=== PATIENT | male | born 1995 | race Caucasian/White ===

== ENCOUNTER 2025-01-06 07:18 | Emergency (ER) | payer BC, SELFPAY ==
--- OUTSIDE RECORDS SUMMARY | 2025-01-05 08:20 | XMS_ITS | Continuity of Care Document ---
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 Name Role Phone Yomi Pascual MD Unavailable Unavailable Allergies, Adverse Reactions, Alerts Substance Reaction Status Criticality No Known Allergies Active No Inform ation Medications Medication Instructions Dosage Effective Dates (start - stop) Status Comments ENTYVIO Administer Entyvio 3 00 mg every 8 weeks infuse by IV route - Active Entyvio 300 mg intravenous solution infuse (300MG) by intravenous route at 0, 2 and 6 weeks, and every 8 weeks thereafter - Active budesonide DR - ER 3 mg capsule,delayed,exten ded release take 3 capsule by oral route every day in the morning - Active Procedures Procedure Date Iv Infus Therap/dx-by Phys; To Routine Serum Collection Iv Infus Therap/dx-by Phys; To Iv Infus Therap/dx-by Phys; To Iv Infus Therap/dx-by Phys; To Iv Infus Therap/dx-by Phys; To 24 Offic/outpt E&m Estab Low-mod Immuniz Admin; 1/combo Vacc/to 24 Flucelvax Trivalent 0.5 mL IV Infusion Up To 1 Hour Offic/outpt E&m Estab Low-mod 4 Avsola IV Infusion Up To 1 Hour Avsola IV Infusion Up To 1 Hour Routine Serum Collection Colonoscopy Flex; Dx (sep Pro) 24 Ugi Endo; W/bx 1/mx Level Iv-surg Path Gross/micro 24 Routine Serum Collection Offic/outpt E&m Estab Mod-hi 2 24 IV Infusion Up To 1 Hour Avsola Avsola IV Infusion Up To 1 Hour Routine Serum Collection Avsola IV Infusion Up To 1 Hour Routine Serum Collection Established Level 4 Remicade Per 10 Mg IV Infusion Up To 1 Hour Each Additional Hour Remicade Per 10 Mg Remicade Per 10 Mg IV Infusion Up To 1 Hour Each Additional Hour Remicade Per 10 Mg IV Infusion Up To 1 Hour Each Additional Hour Offic/outpt E&m Estab Mod-hi 2 Routine Serum Collection Subsqt Hosp-da E&m Minr Compl 3 Init Inpt Cons New/est Mod-hi 3 Offic/outpt E&m New Mod-hi Routine Serum Collection Advance Directives Directive Yes / No Effective Date File Name No Information Encounters Encounter Description Practice Location Reason(s) For Visit Diagnoses Date Provider Providers Copied on Encounter [facility] NATALIA COCHRAN [address] [address], [place], [id number], [place] tel:[phone] [facility] No Information Ankur Celaya. [address] [facility], [facility] [address], [place], [address], [place]. tel:[phone] [facility], [address] [address], [place], [address], [place] tel:[phone] [facility] Crohn's disease, unspecified, without complications Ankur Celaya. [address] [facility], [facility] [address], [place], [id number], [place]. [phone] Jailyn Reese PAC. tel:[phone] [facility], [address] [address], [place], [address], [place] tel:[phone] [facility] Crohn's disease, unspecified, without complications Wes Hahn. [facility] [address], [id number], [place]. [phone] Jailyn Reese PAC. tel:[phone] erring Provider: Referral Self, USE FOR SELF REFERRALS. [facility], [address] [address], [place], [address], [place] tel:[phone] [facility] Crohn's disease of both small and large intestine with intestinal obstruction [facility] Mosley. [address] [facility] [address], [place], [address], [place]. tel:[phone] Referring Provider: Referral Self, USE FOR SELF REFERRALS. [facility], [address] [address], [place], [address], [place] tel:[phone] [facility] Crohn's disease of both small and lg int w intestinal obst 5 Edstrom [facility] Mosley. [address] [facility], [facility] [address], [place], [address], [place]. tel:[phone] [facility], [address] [address], [place], [address], [place] tel:[phone] [facility] [facility] Crohn's disease, unspecified, without complications 5 Ankur Celaya. [address] [place] [address], [id number], [place]. tel:[phone] Jailyn Reese PAC. tel:[phone] [facility], [address] [address], [place], [address], [place] tel:[phone] [facility] [place] Crohn's disease, unspecified, without complications 5 Td Herring. [address] [place] [address], [id number], [place]. tel:[phone] Jailyn Reese PAC. tel:[phone] erring Provider: Referral Self, USE FOR SELF REFERRALS. [facility], [address] [address], [place], [address], [place] tel:[phone] [facility] Crohn's disease, unspecified, without complications 5 Ankur Celaya. [address] [place] [address], [id number], [place]. [phone] [facility], [address] [address], [place], [address], [place] tel:[phone] [facility] Crohn's disease, unspecified, without complications 5 Raymon Casas. [address] [place] [address], [id number], [place]. [phone] Jailyn Reese PAC. tel:[phone] erring Provider: Referral Self, USE FOR SELF REFERRALS. [facility], [address] [address], [place], [address], [place] tel:[phone] [facility] Crohn's disease, unspecified, without complications 5 Ankur Celaya. [address] [place] [address], [id number], [place]. tel:[phone] Jailyn Reese PAC. tel:[phone] [facility], [address] [address], [place], [address], [place] tel:[phone] [facility] [place] Crohn's disease, unspecified, without complications 4 Raymon Casas. [address] [place] [address], [id number], [place]. [phone] Jailyn Reese PAC. tel:[phone] erring Provider: Referral Self, USE FOR SELF REFERRALS. [facility], [address] [address], [place], [address], [place] tel:[phone] [facility] [place] Crohn's disease, unspecified, without complications 4 Ankur Celaya. [address] [place] [address], [id number], [place]. tel:[phone] [facility], [address] [address], [place], [address], [place] tel:[phone] [facility] Crohn's disease, unspecified, without complications 4 Raymon Casas. [address] [place] [address], [id number], [place]. tel:[phone] Jailyn Reese PAC. tel:[phone] erring Provider: Referral Self, USE FOR SELF REFERRALS. [facility], [address] [address], [place], [address], [place] tel:[phone] [facility] Crohn's disease, unspecified, without complications 4 Ankur Celaya. [address] [place] [address], [id number], [place]. tel:[phone] [facility], [address] [address], [place], [address], [place] tel:[phone] [facility] No Information 4 Ankur Celaya. [address] [place] [address], [address], [id number], [place]. tel:[phone] Offic/outpt E&m Estab Low-mod [facility], [address] [address], [place], [id number], [place] tel:[phone] [facility] GI Symptoms or Concerns (chief complaint) Additional Narrative (chief complaint) Crohn's disease, unspecified, without complications 4 Ankur Celaya. [address] [facility], [facility] [address], [place], [address], [place]. tel:[phone] Jailyn Reese PAC. tel:[phone] erring Provider: Referral Self, USE FOR SELF REFERRALS. [facility], [address] [address], [place], [id number], [place] tel:[phone] [facility] Crohn's disease of both small and lg int w intestinal obst 4 Leander Park. [address] [facility], [address], [id number], [place]. tel:[phone] Jailyn Reese PAC. tel:[phone] erring Provider: Referral Self, USE FOR SELF REFERRALS. [facility], [address] [address], [place], [address], [place] tel:[phone] [facility] Crohn's disease of both small and lg int w intestinal obst 4 Ankur Celaya. [address] [facility], [facility] [address], [place], [address], [place]. tel:[phone] Offic/outpt E&m Estab Low-mod [facility], [address] [address], [place], [address], [place] tel:[phone] [facility] GI Symptoms or Concerns (chief complaint) Additional Narrative (chief complaint) Crohn's disease, unspecified, without complications 4 Ankur Celaya. [address] [facility], [facility] [address], [place], [address], [place]. tel:[phone] Jailyn Reese PAC. tel:[phone] erring Provider: Referral Self, USE FOR SELF REFERRALS. [facility], [address] [address], [place], [address], [place] tel:[phone] [facility] Crohn's disease of both small and lg int w intestinal obst 4 Hari Doherty. [address] [place] [address], [id number], [place]. tel:[phone] Jailyn Reese PAC. tel:[phone] erring Provider: Referral Self, USE FOR SELF REFERRALS. [facility], [address] [address], [place], [address], [place] tel:[phone] [facility] Crohn's disease of both small and lg int w intestinal obst 4 Edsshelton Mosley. [address], [id number], [place]. tel:[phone] [facility], [address] [address], [place], [address], [place] tel:[phone] [facility] Crohn's disease of both small and lg int w intestinal obst 4 Ankur Celaya. [address] [facility] [address], [place], [id number], [place]. tel:[phone] Jailyn Reese PAC. tel:[phone] [facility], [address] [address], [place], [address], [place] tel:[phone] [facility] Crohn's disease of both small and lg int w intestinal obst 4 Madhuri Tavarez. [address] [place] [address], [id number], [place]. tel:[phone] Jailyn Reese PAC. tel:[phone] erring Provider: Referral Self, USE FOR SELF REFERRALS. [facility], [address] [address], [place], [address], [place] tel:[phone] [facility] Crohn's disease of both small and lg int w intestinal obst 4 Neyda Mosley. [address] [place] [address], [address], [id number], [place]. tel:[phone] Referring Provider: Referral Self, USE FOR SELF REFERRALS. [facility], [address] [address], [place], [address], [place] tel:[phone] [facility] Crohn's disease of both small and lg int w intestinal obst 4 Ankur Celaya. [address] [place] [address], [id number], [place]. tel:[phone] [facility], [address] [address], [place], [address], [place] tel:[phone] [facility] Crohn's disease, unspecified, without complicationsCro hn's disease, unspecified, without complicationsDuo denitis without bleedingCrohn's disease, unspecified, without complications 4 Ankur Celaya. [address] [place] [address], [id number], [place]. tel:[phone] Jailyn Reese PAC. tel:[phone] erring Provider: Referral Self, USE FOR SELF REFERRALS. [facility], [address] [address], [place], [address], [place] tel:[phone] [facility] Crohn's disease, unspecified, without complications 4 Ankur Celaya. [address] [place] [address], [address], [id number], [place]. tel:[phone] Referring Provider: Referral Self, USE FOR SELF REFERRALS. [facility], [address] [address], [place], [address], [place] tel:[phone] [facility] Crohn's disease without complication, unspecified gastrointestinal tract locationSkin rashPruritic rash 4 Edstrivett Mosley. [address], [id number], [place]. tel:[phone] Offic/outpt E&m Estab Mod-hi 2 [facility], [address] [address], [place], [address], [place] tel:[phone] [facility] GI Symptoms or Concerns (chief complaint) Additional Narrative (chief complaint) Crohn's disease of both small and lg int w intestinal obstCrohn's disease without complication, unspecified gastrointestinal tract location 4 Ankur Celaya. [address], [id number], [place]. tel:[phone] Referring Provider: Referral Self, USE FOR SELF REFERRALS. [facility], [address] [address], [place], [address], [place] tel:[phone] [facility] [place] Crohn's disease of both small and lg int w intestinal obst Sep- 4 Gee Ortiz. [address], [id number], [place]. tel:[phone] Referring Provider: Referral Self, USE FOR SELF REFERRALS. [facility], [address] [address], [place], [address], [place] tel:[phone] [facility] [place] Crohn's disease of both small and lg int w intestinal obst 4 Edstrivett Mosley. [address], [id number], [place]. tel:[phone] [facility], [address] [address], [place], [address], [place] tel:[phone] [facility] [place] Crohn's disease of both small and lg int w intestinal obst 4 Alexia Turner. [address], [id number], [place]. tel:[phone] Referring Provider: Referral Self, USE FOR SELF REFERRALS. [facility], [address] [address], [place], [address], [place] tel:[phone] [facility] Crohn's disease of both small and lg int w intestinal obst 4 Edstrom PA Melany. [address] [place] [address], [id number], [place]. tel:[phone] Referring Provider: Referral Self, USE FOR SELF REFERRALS. [facility], [address] [address], [place], [address], [place] tel:[phone] [facility] [place] Crohn's disease of both small and lg int w intestinal obst 4 Edstrom PA Melany. [address] [place] [address], [id number], [place]. tel:[phone] [facility], [address] [address], [place], [address], [place] tel:[phone] [facility] [place] Crohn's disease of both small and lg int w intestinal obst 3 Nelida Lo. [address], [id number], [place]. tel:[phone] Referring Provider: Referral Self, USE FOR SELF REFERRALS. [facility], [address] [address], [place], [address], [place] tel:[phone] [facility] Crohn's disease of both small and lg int w intestinal obst 3 Edstrom [facility] Mosley. [address] [place] [address], [id number], [place]. tel:[phone] Referring Provider: Referral Self, USE FOR SELF REFERRALS. [facility], [address] [address], [place], [address], [place] tel:[phone] [facility] Crohn's disease of both small and lg int w intestinal obst Dec-0 8- 3 Edstrom [facility] Mosley. [address] [facility], [facility] [address], [place], [address], [place]. tel:[phone] [facility], [address] [address], [place], [address], [place] tel:[phone] [facility] Crohn's disease of both small and lg int w intestinal obst Apr-06 28- 3 Edstrom [facility] Mosley. [address], [id number], [place]. tel:[phone] Established Level 4 [facility], [address] [address], [place], [address], [place] tel:[phone] [facility] GI Symptoms or Concerns (chief complaint) Additional Narrative (chief complaint) Crohn's disease of both small and lg int w intestinal obst Apr-06 26- 3 Edstrom [facility] Mosley. [address], [id number], [place]. tel:[phone] Referring Provider: Referral Self, USE FOR SELF REFERRALS. [facility], [address] [address], [place], [address], [place] tel:[phone] [facility] [place] Crohn's disease of both small and lg int w intestinal obst Mar-2 0- 3 [place]ander [place]. [address], [id number], [place]. tel:[phone] Referring Provider: Referral Self, USE FOR SELF REFERRALS. [facility], [address] [address], [place], [address], [place] tel:[phone] [facility] Crohn's disease of both small and lg int w intestinal obst Mar- 2-202 3 Edstrom [facility] Mosley. [address] [facility], [address], [id number], [place]. tel:[phone] [facility], [address] [address], [place], [address], [place] tel:[phone] [facility] [place] Crohn's disease of both small and lg int w intestinal obst Sep-2 3 Andi Green. [address], [id number], [place]. tel:[phone] Referring Provider: Referral Self, USE FOR SELF REFERRALS. [facility], [address] [address], [place], [id number], [place] tel:[phone] [facility] [place] Crohn's disease of both small and lg int w intestinal obst Sep-1 3 Edstrom [facility] Mosley. [address], [id number], [place]. tel:[phone] [facility], [address] [address], [place], [address], [place] tel:[phone] [facility] Crohn's disease of both small and lg int w intestinal obst Sep-0 3 Gee Ortiz. [address], [id number], [place]. tel:[phone] Referring Provider: Referral Self, USE FOR SELF REFERRALS. [facility], [address] [address], [place], [id number], [place] tel:[phone] [facility] [place] Crohn's disease of both small and large intestine with intestinal obstruction 3 Edstrom DIM[facility] Mosley. [address], [id number], [place]. tel:[phone] [facility], [address] [address], [place], [address], [place] tel:[phone] [facility] Crohn's disease of both small and large intestine with intestinal obstruction 3 Edstrom [facility]IM[facility] Mosley. [address], [id number], [place]. tel:[phone] Offic/outpt E&m Estab Mod-hi 2 [facility], [address] [address], [facility] [place] [place], [address], [place] tel:[phone] [facility] GI Symptoms or Concerns (chief complaint) Crohn's disease of both small and large intestine with intestinal obstruction 3 Neyda Mosley. [address] [facility], [place] [address], [place], [place], [address], [place]. tel:[phone] Referring Provider: Referral Self, USE FOR SELF REFERRALS. Subsqt Hosp-da E&m Minr Compl [facility], [address] [address], [facility] [place], [address], [place] tel:[phone] [facility] No Information 3 Nelida Lo. [address], [id number], [place]. tel:[phone] Referring Provider: Teresita Hull, [address] [address], [place], [address] . tel:[phone] Init Inpt Cons New/est Mod-hi [facility], [address] [address], [facility] [place], [address], [place] tel:[phone] [facility] No Information 3 Hal Feliz. [address] [facility], [place] [address], [place], [place], [address], [place]. tel:[phone] Referring Provider: Kirby Lake MD, [address] [facility] [address], [place], [address]. tel:[phone] [facility], [address] [address], [place], [address], [place] tel:[phone] [facility] Crohn's disease of both small and large intestine with intestinal obstruction 3 Hal Feliz. [address] [facility], [address], [id number], [place]. tel:[phone] Offic/outpt E&m New Mod-hi [facility], [address] [address], [place], [place], [address], tel:[phone] [facility] GI Symptoms or Concerns (chief complaint) Crohn's disease without complication, unspecified gastrointestinal tract location 3 Sarahi Cabezas. [address] [address], [place], [place], [address], [place]. tel:[phone] Referring Provider: Referral Self, USE FOR SELF REFERRALS. [facility], [address] [address], [place], [place], [address], tel:[phone] [facility] No Information 3 Kahlil Self. [address] [address], [place], [place], [address], [place]. tel:[phone] Family History Family Member Type Diagnosis Age At Onset Father Problem (finding) Alcoholism Mother Problem (finding) Thyroid disorder Immunizations Vaccine Date Status Comments Pneumococcal conjugate PCV20 not administ ered Source: New Immunization Record Influenza administered Source: [facility] Immunization Record tetanus toxoid, reduced diphtheria toxoid, and acellular pertussis vaccine, adsorbed administered Note: [facility] bi-direct ional interface ; Source: Other Registry Payers Payer name Insurance type Covered democrat ID Authoriza tion(s) [employer] [place] [id number] [employer] CI [id number] [employer] [place] [id number] [employer] [place] [id number] Social History Type Description Quantity Date Captured Comments Alcohol Use Details Unknown Caffeine Use Details Unknown Tobacco Use Status No Information Smoking Status No Information Sex Male Chief Complaint And Reason For Visit No Information Reason For Referral Reason For Referral No Information Plan Of Treatment Date Type Action Status Goal Vitamin D, 25-Hydroxy. Due o n due Goal Smoking status. Due on due Goal Dermatology - Skin Screening . Due on due Goal Prevnar 20. Due on due Goal DEXA Bone Density Study. Due on due Goal Influenza. Due on due Goal Tdap. Due on due Goal Colonoscopy. Due on due Goal Prevnar 20. Due on due Goal Tdap. Due on due Goal Colonoscopy. Due on due Goal DEXA Bone Density Study. Due on due Goal Influenza. Due on due Goal Dermatology - Skin Screening . Due on due Goal Smoking status. Due on due Goal Vitamin D, 25-Hydroxy. Due o n due Goal Tdap. Due on due Goal DEXA Bone Density Study. Due on due Goal Colonoscopy. Due on due Goal Smoking status. Due on due Goal Dermatology - Skin Screening . Due on due Goal Influenza. Due on due Goal Prevnar 20. Due on due Goal Vitamin D, 25-Hydroxy. Due o n due Goal Vitamin D, 25-Hydroxy. Due o n due Goal DEXA Bone Density Study. Due on due Goal Smoking status. Due on due Goal Dermatology - Skin Screening . Due on due Goal Colonoscopy. Due on due Goal Prevnar 20. Due on due Goal Tdap. Due on due Goal Influenza. Due on due Goal Influenza. Due on due Goal Prevnar 20. Due on due Goal DEXA Bone Density Study. Due on due Goal Vitamin D, 25-Hydroxy. Due o n due Goal Colonoscopy. Due on due Goal Dermatology - Skin Screening . Due on due Goal Tdap. Due on due Goal Smoking status. Due on due Goal Tdap. Due on due Goal Smoking status. Due on due Goal Influenza. Due on due Goal Prevnar 20. Due on due Goal Vitamin D, 25-Hydroxy. Due o n due Goal DEXA Bone Density Study. Due on due Goal Colonoscopy. Due on due Goal Dermatology - Skin Screening . Due on due Goal Vitamin D, 25-Hydroxy. Due o n due Goal Tdap. Due on due Goal DEXA Bone Density Study. Due on due Goal Smoking status. Due on due Goal Colonoscopy. Due on due Goal Influenza. Due on due Goal Prevnar 20. Due on due Goal Dermatology - Skin Screening . Due on due Goal Influenza. Due on due Goal Prevnar 20. Due on due Goal Colonoscopy. Due on due Goal Smoking status. Due on due Goal DEXA Bone Density Study. Due on due Goal Dermatology - Skin Screening . Due on due Goal Vitamin D, 25-Hydroxy. Due o n due Goal Tdap. Due on due Goal Colonoscopy. Due on due Goal Dermatology - Skin Screening . Due on due Goal Smoking status. Due on due Goal Influenza. Due on due Goal Tdap. Due on due Goal Vitamin D, 25-Hydroxy. Due o n due Goal DEXA Bone Density Study. Due on due Goal Prevnar 20. Due on due Goal Prevnar 20. Due on due Goal Dermatology - Skin Screening . Due on due Goal Influenza. Due on due Goal Smoking status. Due on due Goal Vitamin D, 25-Hydroxy. Due o n due Goal DEXA Bone Density Study. Due on due Goal Colonoscopy. Due on due Goal Tdap. Due on due Goal Vitamin D, 25-Hydroxy. Due o n due Goal Dermatology - Skin Screening . Due on due Goal Smoking status. Due on due Goal Tdap. Due on due Goal Colonoscopy. Due on due Goal Influenza. Due on due Goal DEXA Bone Density Study. Due on due Goal DEXA Bone Density Study. Due on due Goal Colonoscopy. Due on due Goal Smoking status. Due on due Goal Vitamin D, 25-Hydroxy. Due o n due Goal Tdap. Due on due Goal Influenza. Due on due Goal Dermatology - Skin Screening . Due on due Goal DEXA Bone Density Study. Due on due Goal Tdap. Due on due Goal Dermatology - Skin Screening . Due on due Goal Colonoscopy. Due on due Goal Influenza. Due on due Goal Vitamin D, 25-Hydroxy. Due o n due Goal Smoking status. Due on due Goal Dermatology - Skin Screening . Due on due Goal Colonoscopy. Due on due Goal Influenza. Due on due Goal DEXA Bone Density Study. Due on due Goal Tdap. Due on due Goal Vitamin D, 25-Hydroxy. Due o n due Goal Smoking status. Due on due Goal Tdap. Due on due Goal Influenza. Due on due Goal Vitamin D, 25-Hydroxy. Due o n due Goal Smoking status. Due on due Goal DEXA Bone Density Study. Due on due Goal Dermatology - Skin Screening . Due on due Goal Colonoscopy. Due on due Goal Tdap. Due on due Goal Dermatology - Skin Screening . Due on due Goal DEXA Bone Density Study. Due on due Goal Vitamin D, 25-Hydroxy. Due o n due Goal Influenza. Due on due Goal Smoking status. Due on due Goal Colonoscopy. Due on due Goal Tdap. Due on due Goal Dermatology - Skin Screening . Due on due Goal Smoking status. Due on due Goal Vitamin D, 25-Hydroxy. Due o n due Goal DEXA Bone Density Study. Due on due Goal Colonoscopy. Due on due Goal Dermatology - Skin Screening . Due on due Goal Smoking status. Due on due Goal Tdap. Due on due Goal Colonoscopy. Due on due Goal DEXA Bone Density Study. Due on due Goal Vitamin D, 25-Hydroxy. Due o n due Goal Dermatology - Skin Screening . Due on due Goal Tdap. Due on due Goal Vitamin D, 25-Hydroxy. Due o n due Goal DEXA Bone Density Study. Due on due Goal Colonoscopy. Due on due Goal Smoking status. Due on due Goal Tdap. Due on due Goal Colonoscopy. Due on due Goal Smoking status. Due on due Goal Dermatology - Skin Screening . Due on due Goal Vitamin D, 25-Hydroxy. Due o n due Goal DEXA Bone Density Study. Due on due Goal DEXA Bone Density Study. Due on due Goal Dermatology - Skin Screening . Due on due Goal Vitamin D, 25-Hydroxy. Due o n due Goal Colonoscopy. Due on due Goal Tdap. Due on due Goal Smoking status. Due on due Goal Smoking status. Due on due Goal DEXA Bone Density Study. Due on due Goal Vitamin D, 25-Hydroxy. Due o n due Goal Tdap. Due on due Goal Dermatology - Skin Screening . Due on due Goal Colonoscopy. Due on due Referral Ordered: referred to Dermatology skin cancer screening; on infliximab 2 Weeks Appointment date/timeframe: 14 Days ordered Referral Ordered: follow-up visit 1 Year Appointment date/timeframe: 1 Year ordered Referral Ordered: Hepatic Function Panel Appointment date/timeframe: 11/05/2023 ordered Referral Ordered: follow-up visit with IBD MD 4 Months Appointment date/timeframe: 4 Months ordered Referral Ordered: EGD Appointment date/timeframe: 09/04/2023 ordered Referral Ordered: follow-up visit with IBD MD 3 Months Appointment date/timeframe: 3 Months ordered Referral Ordered: Financial Counselor Review Appointment date/timeframe: First Available ordered Referral Ordered: follow-up visit with IBD MD roachnt ok within 6 Weeks or by 02/12/2023 Appointment date/timeframe: 6 Weeks ordered Referral Ordered: MRI Enterography With Contrast Per Radiology Appointment date/timeframe: 12/29/2022 ordered Referral Ordered: Colonoscopy Appointment date/timeframe: 01/12/2023 ordered Appointment Dileep Ospina BOOKED Appointment Dileep Ospina BOOKED History Of Present Illness Encounter Date Complaint History Of Prese nt Illness GI Symptoms or Concerns 29-year- old man with history of Crohn's ileocolitis, with recent flare symptoms and evidence of ongoing ileitis, failure of infliximab due to antibody formation, presents for follow-up to switch to different maintenance medication.MRI in February showed distal ileitis. He has been having mild flare symptoms, including abdominal cramping, particularly at work when bending over and doing physical activity (which is common for him), and to a lesser degree with eating. His bowel movements are still regular. He denies constipation or diarrhea. He denies blood in his stool or black stool. No nausea or vomiting.Recent infliximab trough level showed undetectable drug and high antibodies.He started on budesonide 9 Mg daily about 5 days ago. He does feel some improvement in the abdominal pain since starting budesonide. Additional Narrative IBD:Crohn's ileocolitis (with possible upper GI tract Crohn's), diagnosed through Dr. Gurrola in [place], [place] in November of 2021. Complicated by small bowel obstructions (three times in 2022).CURRENT TREATMENT:-Infliximab/Avsola 5 mg/kg every 8 weeks (02/27/2023 - present). Infliximab trough level found to be undetectable with high antibodies (>1000) on 03/11/24. PRIOR TREATMENTS:-azathioprine 175 milligrams daily ([id number]; overlapped with infliximab for a few months)-Prednisone taper 11/2023-12/2023IMAGING:-CT 11/2023 with partial SBO; seen at ED with acute symptoms. Treated with prednisone taper. -CT (03/2023) - irregular thickening and narrowing of the TI similar to previous exam in December 2022, with proximal small bowel dilation consistent with small bowel obstruction. -CT 12/30/2022 moderately dilated loops of central small bowel with marked thickening of the distal small bowel at the terminal ileum and moderate perienteric inflammatory change similar to previous exam likely related to active Crohn's disease likely contributing to partial small bowel obstruction. -CT 10/21/2022 marked wall thickening, mucosal hyperenhancement, luminal narrowing involving approximately 15 centimeter segment of distal ileum leading to the ileocecal valve with associated perienteric fat stranding and vascular engorgement consistent with Crohn's disease with proximal multiple dilated fluid-filled loops of small bowel suggestive of partial small bowel obstruction, multiple prominent mesenteric lymph node likely reactive. -MRE 03/04/24: 10 cm distal ileum inflammation (despite infliximab/avsola treatment).ENDOSCOPIES:-Upper endoscopy and colonoscopy ([facility]) 12/17/2021. Colonoscopy showed mild inflammation in the rectum and throughout the colon, terminal ileum inflammation. Colon biopsies showed focal active colitis with aphthous erosions and non-necrotizing granulomas. Rectal biopsy showed inactive, chronic colitis with scattered non-necrotizing granulomas. Upper endoscopy showed evidence of mild gastritis. Gastric biopsy showed patchy mild, chronic inflammation with non-necrotizing granulomas, negative H pylori stains, duodenal biopsy was normal. Gastroesophageal junction biopsy showed non-necrotizing granulomas in the gastric cardia, terminal ileum biopsy showed active, chronic ileitis. LABS:-Negative QuantiFERON 11/2022. -Hepatitis B surface antigen, surface antibody, and core antibody all negative. HAV negative. 11/2022.HEALTH MAINTENANCE:NSAID use: none. Tobacco: none. Influenza vaccine: given 04/29/24. Pneumococcal vaccine: undocumented. Prevnar 20 ordered, but not yet given. COVID-19 vaccine: No prior vaccine per patient. Declines. Hepatitis A and B vaccine: noted to be nonimmune in November 2022. Declined vaccinations today. Varicella vaccine: undocumented. (Patient reports that he lived in [place] until he was a teenager therefore vaccination records may be difficult to retrieve.)Vitamin-D: patient reports taking a multivitamin with vitamin D. Normal vitamin D level January 2023.Vitamin B12: normal January 2023. Reports being on oral iron supplements in the past but not presently.Derm eval: evaluated in 02/2024; no concernsSurveillance colonoscopy will be due in 2030. GI Symptoms or Concerns 29-year- old man with history of Crohn's ileocolitis, complicated by prior bowel obstructions, presents for follow-up. He has been maintained on infliximab 5 mg/ kg every 8 weeks since 02/2023. He had recent bowel obstruction, treated conservatively and with prednisone taper in 11/2023. He has now completed prednisone for about 2 weeks. He reports pain started abruptly, and seem to be brought on by heavy lifting and other physical labor at his job. Prior obstructions have also seemed to be triggered by this. 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 He denies any GI symptoms prior to the acute onset. He did seem to feel better with prednisone. He denies blood in his stool, black stool, diarrhea, early satiety, nausea or vomiting, unexplained weight loss. He denies extraintestinal symptoms. He also states that he had a pruritic rash on his extensor several months ago. Not related to infusions. He went online and got a suggestion that it might be a nutritional d Additional Narrative IBD:Crohn's ileocolitis (with possible upper GI tract Crohn's), diagnosed through Dr. Gurrola in [place], [place] in November of 2021. Complicated by small bowel obstructions (three times in 2022).CURRENT TREATMENT:-Infliximab/Avsola 5 mg/kg every 8 weeks (02/27/2023 - present)PRIOR TREATMENTS:-azathioprine 175 milligrams daily ([id number]; overlapped with infliximab for a few months)-Prednisone taper 11/2023-12/2023IMAGING:-CT 11/2023 with partial SBO; seen at ED with acute symptoms. Treated with prednisone taper. -CT (03/2023) - irregular thickening and narrowing of the TI similar to previous exam in December 2022, with proximal small bowel dilation consistent with small bowel obstruction. -CT 12/30/2022 moderately dilated loops of central small bowel with marked thickening of the distal small bowel at the terminal ileum and moderate perienteric inflammatory change similar to previous exam likely related to active Crohn's disease likely contributing to partial small bowel obstruction. -CT 10/21/2022 marked wall thickening, mucosal hyperenhancement, luminal narrowing involving approximately 15 centimeter segment of distal ileum leading to the ileocecal valve with associated perienteric fat stranding and vascular engorgement consistent with Crohn's disease with proximal multiple dilated fluid-filled loops of small bowel suggestive of partial small bowel obstruction, multiple prominent mesenteric lymph node likely reactive. ENDOSCOPIES:-Upper endoscopy and colonoscopy ([facility]) 12/17/2021. Colonoscopy showed mild inflammation in the rectum and throughout the colon, terminal ileum inflammation. Colon biopsies showed focal active colitis with aphthous erosions and non-necrotizing granulomas. Rectal biopsy showed inactive, chronic colitis with scattered non-necrotizing granulomas. Upper endoscopy showed evidence of mild gastritis. Gastric biopsy showed patchy mild, chronic inflammation with non-necrotizing granulomas, negative H pylori stains, duodenal biopsy was normal. Gastroesophageal junction biopsy showed non-necrotizing granulomas in the gastric cardia, terminal ileum biopsy showed active, chronic ileitis. LABS:-Negative QuantiFERON 11/2022. -Hepatitis B surface antigen, surface antibody, and core antibody all negative. HAV negative. 11/2022.HEALTH MAINTENANCE:NSAID use: none. Tobacco: none. Influenza vaccine: declines. Pneumococcal vaccine: undocumented. Prevnar 20 ordered, will get with next infusion.COVID-19 vaccine: No prior vaccine per patient. Declines. Hepatitis A and B vaccine: noted to be nonimmune in November 2022. Declined vaccinations today. Varicella vaccine: undocumented. (Patient reports that he lived in [place] until he was a teenager therefore vaccination records may be difficult to retrieve.)Vitamin-D: patient reports taking a multivitamin with vitamin D. Normal vitamin D level January 2023.Vitamin B12: normal January 2023. Reports being on oral iron supplements in the past but not presently.Derm eval: will address at next visit. Surveillance colonoscopy will be due in 2029. GI Symptoms or Concerns 28-year- old man with history of Crohn's disease of the upper GI tract and lower GI tract, complicated by multiple small bowel obstructions, presents for follow-up after starting infliximab 5 mg/ kg every 8 weeks on 02/27/2023. He was on combination therapy with azathioprine for overlap for a few months, but believes he stopped that a few months ago. He does report that he is doing better since starting the infliximab. He is having daily bowel movements. He is not generally having any abdominal pain. He does note that he occasionally feels a pain in his mid to right abdomen when he bends over at work. 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 The abdominal pain could be related to his physical activity. The pain is mild and occasional. There is no relationship with bowel movements or with eating. He denies blood in his stool or black stools. He denies extraintestinal symptoms. Additional Narrative IBD:Crohn's ileocolitis (with possible upper GI tract Crohn's), diagnosed through Dr. Gurrola in [place], [place] in November of 2021. Complicated by small bowel obstructions (three times in 2022).CURRENT TREATMENT:-Infliximab/Avsola 5 mg/kg every 8 weeks (02/27/2023 - present)PRIOR TREATMENTS:-azathioprine 175 milligrams daily ([id number]; overlapped with infliximab for a few months)IMAGING:-CT (03/2023) - irregular thickening and narrowing of the TI similar to previous exam in December 2022, with proximal small bowel dilation consistent with small bowel obstruction. -CT 12/30/2022 moderately dilated loops of central small bowel with marked thickening of the distal small bowel at the terminal ileum and moderate perienteric inflammatory change similar to previous exam likely related to active Crohn's disease likely contributing to partial small bowel obstruction. -CT 10/21/2022 marked wall thickening, mucosal hyperenhancement, luminal narrowing involving approximately 15 centimeter segment of distal ileum leading to the ileocecal valve with associated perienteric fat stranding and vascular engorgement consistent with Crohn's disease with proximal multiple dilated fluid-filled loops of small bowel suggestive of partial small bowel obstruction, multiple prominent mesenteric lymph node likely reactive. ENDOSCOPIES:-Upper endoscopy and colonoscopy ([facility]) 12/17/2021. Colonoscopy showed mild inflammation in the rectum and throughout the colon, terminal ileum inflammation. Colon biopsies showed focal active colitis with aphthous erosions and non-necrotizing granulomas. Rectal biopsy showed inactive, chronic colitis with scattered non-necrotizing granulomas. Upper endoscopy showed evidence of mild gastritis. Gastric biopsy showed patchy mild, chronic inflammation with non-necrotizing granulomas, negative H pylori stains, duodenal biopsy was normal. Gastroesophageal junction biopsy showed non-necrotizing granulomas in the gastric cardia, terminal ileum biopsy showed active, chronic ileitis. LABS:-Negative QuantiFERON 11/2022. -Hepatitis B surface antigen, surface antibody, and core antibody all negative. HAV negative. 11/2022.HEALTH MAINTENANCE:NSAID use: none. Tobacco: none. Influenza vaccine: declines. Pneumococcal vaccine: undocumented. Prevnar 20 ordered, will get with next infusion.COVID-19 vaccine: No prior vaccine per patient. Declines. Hepatitis A and B vaccine: noted to be nonimmune in November 2022. Declined vaccinations today. Varicella vaccine: undocumented. (Patient reports that he lived in [place] until he was a teenager therefore vaccination records may be difficult to retrieve.)Vitamin-D: patient reports taking a multivitamin with vitamin D. Normal vitamin D level January 2023.Vitamin B12: normal January 2023. Reports being on oral iron supplements in the past but not presently.Derm eval: will address at next visit. Surveillance colonoscopy will be due in 2029. GI Symptoms or Concerns Additional Narrative This is a greg garrett 28-year-old male presenting via virtual visit today for Crohn's ileocolitis follow-up, recent hospitalization for small-bowel obstruction. Dileep was diagnosed with Crohn's ileocolitis, possible upper GI tract Crohn's through Dr. Gurrola in [place], [place] in November of 2021. He has been treated with azathioprine 175 milligrams a day since his diagnosis. He has had trouble more recently with small bowel obstructions and was hospitalized in October, December, and then most recently in late March with CT showing active TI inflammation. He was started on combination therapy with Remicade 5mg/kg on February 27 and completed his final induction dose on April 10. He is due for his first maintenance dose in May but insurance is requiring a switch to Avsola. He was hospitalized at [facility] on April 11 (one day after his 3rd Remicade dose) with nausea, vomiting, abdominal pain. CT scan showed irregular thickening and narrowing of the TI similar to previous exam in December 2022 with proximal small bowel dilation consistent with small bowel obstruction. CBC and CRP were normal. He was treated with an NG tube, IV steroids and quickly improved. He discharged on oral prednisone taper and thinks he is on 10mg right now. He has been doing well since that time with regular stooling. Denies rectal bleeding, abdominal pain, vomiting. Upper endoscopy and colonoscopy records from [facility] dated December 17, 2021. Colonoscopy showed mild inflammation in the rectum and throughout the colon, terminal ileum inflammation. Upper endoscopy showed evidence of mild gastritis. Gastric biopsy showed patchy mild, chronic inflammation with non-necrotizing granulomas, negative H pylori stains, duodenal biopsy was normal. Gastroesophageal junction biopsy showed non-necrotizing granulomas in the gastric cardia, terminal ileum biopsy showed active, chronic ileitis. Random colon biopsies showed focal active colitis with aphthous erosions and non-necrotizing granulomas. Rectal biopsy showed inactive, chronic colitis with scattered non-necrotizing granulomas. CT abdomen and pelvis with IV contrast dated December 30, 2022 showed moderately dilated loops of central small bowel with marked thickening of the distal small bowel at the terminal ileum and moderate perienteric inflammatory change similar to previous exam likely related to active Crohn's disease likely contributing to partial small bowel obstruction. CT abdomen and pelvis with IV contrast dated October 21, 2022 showed marked wall thickening, mucosal hyperenhancement, luminal narrowing involving approximately 15 centimeter segment of distal ileum leading to the ileocecal valve with associated perienteric fat stranding and vascular engorgement consistent with Crohn's disease with proximal multiple dilated fluid-filled loops of small bowel suggestive of partial small bowel obstruction, multiple prominent mesenteric lymph node likely reactive. Labs dated December 12 through our office showed a normal CBC, LFTs. Negative QuantiFERON. Hepatitis B surface antigen, surface antibody, and core antibody were all negative. He is not immune to hepatitis-B. Hepatitis A IgG was also negative indicating lack of immunity.Health maintenance:NSAID use: none. Tobacco: none. Influenza vaccine: declines. Pneumococcal vaccine: undocumented. Prevnar 20 ordered, will get with next infusion.COVID-19 vaccine: No prior vaccine per patient. Declines. Hepatitis A and B vaccine: noted to be nonimmune in November 2022. Declined vaccinations today. Varicella vaccine: undocumented. (Patient reports that he lived in [place] until he was a teenager therefore vaccination records may be difficult to retrieve.)Vitamin-D: patient reports taking a multivitamin with vitamin D. Normal vitamin D level January 2023.Vitamin B12: normal January 2023. Reports being on oral iron supplements in the past but not presently.Derm eval: will address at next visit. Quantiferon: negative November 2022. Colonoscopy: due August 2023 to assess response to Remicade/Avsola. GI Symptoms or Concerns This is a pleasant 28-year-old male presenting to clinic today for Crohn's ileocolitis follow-up, recent hospitalization for small-bowel obstruction. Patient recently established care with our office in November of this year at which time records were not available. Since that time, records were able to be obtained. He was diagnosed with Crohn's ileocolitis, possible upper GI tract Crohn's through Dr. Gurrola in [place], [place] in November of 2021. He has been treated with azathioprine 175 milligrams a day since his diagnosis. He was hospitalized at [facility] in October of this year with a small-bowel obstruction and improved with IV steroids. He discharged on oral budesonide and established care with our office afterwards. Unfortunately, he returned to [facility] in mid December with abdominal pain, nausea and vomiting. CT scan showed evidence of a small-bowel obstruction and ileitis. He was transferred to [facility] and was seen by our service along with Colorectal surgery. He reports being treated with IV steroids with a relatively quick improvement. He currently is on an oral prednisone taper. He is unsure his exact dose but he is taking between 2, possibly 2-1/2 tablets a day and decreasing by a half a tablet per week. Currently, he is doing well with 1-2 formed bowel movements a day. He may go every other day. He denies any nausea or vomiting. He is tolerating a normal diet. Not following a low-fiber diet at this point. He denies any rectal bleeding. He is having some abdominal pain with certain movements but otherwise denies any abdominal pain.Since his last visit, we were able to obtain his upper endoscopy and colonoscopy records from [facility] dated December 17, 2021. Colonoscopy showed mild inflammation in the rectum and throughout the colon, terminal ileum inflammation. Upper endoscopy showed evidence of mild gastritis. Gastric biopsy showed patchy mild, chronic inflammation with non-necrotizing granulomas, negative H pylori stains, duodenal biopsy was normal. Gastroesophageal junction biopsy showed non-necrotizing granulomas in the gastric cardia, terminal ileum biopsy showed active, chronic ileitis. Random colon biopsies showed focal active colitis with aphthous erosions and non-necrotizing granulomas. Rectal biopsy showed inactive, chronic colitis with scattered non-necrotizing granulomas. CT abdomen and pelvis with IV contrast dated December 30, 2022 showed moderately dilated loops of central small bowel with marked thickening of the distal small bowel at the terminal ileum and moderate perienteric inflammatory change similar to previous exam likely related to active Crohn's disease likely contributing to partial small bowel obstruction. CT abdomen and pelvis with IV contrast dated October 21, 2022 showed marked wall thickening, mucosal hyperenhancement, luminal narrowing involving approximately 15 centimeter segment of distal ileum leading to the ileocecal valve with associated perienteric fat stranding and vascular engorgement consistent with Crohn's disease with proximal multiple dilated fluid-filled loops of small bowel suggestive of partial small bowel obstruction, multiple prominent mesenteric lymph node likely reactive. Labs dated December 12 through our office showed a normal CBC, LFTs. Negative QuantiFERON. Hepatitis B surface antigen, surface antibody, and core antibody were all negative. He is not immune to hepatitis-B. Hepatitis A IgG was also negative indicating lack of immunity.Health maintenance:NSAID use: none. Tobacco: none. Influenza vaccine: typically does not receive. Pneumococcal vaccine: undocumented. COVID-19 vaccine: denies. Not interested in vaccination. Hepatitis a and B vaccine: noted to be nonimmune in November 2022. Declined vaccinations today. Varicella vaccine: undocumented. (Patient reports that he lived in [place] until he was a teenager therefore vaccination records may be difficult to retrieve.)Vitamin-D - patient reports taking a multivitamin. He is never been told that he has vitamin-D deficiency. Recommended daily vitamin-D. Vitamin B12: has not been checked recently. We will check today. Reports being on oral iron supplements in the past but not presently. GI Symptoms or Concerns This is a 27-year-old male with a diagnosis Crohn's disease in December of 2021 in [place] currently being managed on azathioprine who presents to [facility] care after being hospitalized with a small bowel obstruction in October. Patient reports that he was diagnosed in December of 2021 after presenting to the emergency room with severe abdominal pain. A CT scan was obtained he was told to follow up with an EGD and colonoscopy. He was told that he had Crohn's disease after the scopes were completed. He then followed up with Dr. Gurrola in [place] for management. The patient is uncertain of the distribution of his disease. He does know that he has been treated with azathioprine and is currently taking 3.5 tabs daily. Since his hospitalization in mid October at discharge 1 hospital he has been on budesonide as well. The patient's mother thinks that there was a small bowel obstruction where the small intestine meets the large intestine. The patient no longer has any abdominal pain. Functional Status Date Functional Assessmen t No Information Instructions Date Instruction Additional Infor johanne Colon Cancer Prevention Related to Crohn's disease, unspecified, without complications Infliximab IV per celerated protocol 1. Remicade inductio ns complete - start maintenance therapy with Avsola 5mg/kg every 8 weeks as planned in May. 2. Continue azathioprine 175mg daily. 3. Taper off prednisone as prescribed through the hospital. 4. Upper endoscopy and colonoscopy in August to assess response to Remicade/Avsola. 5. If recurrent obstructions continue and active inflammation is noted on CT, then may need to check trough level and increase dose to 10mg/kg every 8 weeks. If obstructions continue and no active inflammation is noted on CT then this is most likely related to a stricture and will need to refer to colorectal surgery to discuss surgery to remove this section. 6. Consider vaccinations: Flu, COVID-19 series/booster, Prevnar 20 (ordered -can get with next infusion), Twinrix vaccine for hepatitis A and B. 7. Continue daily vitamin D. 8. Avoid NSAIDs. 9. Follow up visit after upper endoscopy and colonoscopy in August 2023 to establish care with IBD MD Ashley. Related to Crohn's disease of both small and lg int w intestinal obst Infliximab IV per [facility] protocol. Infliximab IV per celerated protocol IBD Folder Related to Crohn 's disease without complication, unspecified gastrointestinal tract location Assessments Type Assessment Date No Information Patient Care Teams Name Effective Dates (start - stop) Status Members No Information
--- OUTSIDE RECORDS SUMMARY | 2025-01-06 07:20 | XMS_ITS | Clinical Summary ---
Author Organization [facility] Address [address] [place] [address] Care Team Providers Care Stonemason Name Role Phone Jailyn Reese Primary Care Provider [phone] Thai Gurrola MD Unavailable [phone] Allergies No known active allergies Medications acetaminophen (TYLENOL EXTRA STRGTH) 500 mg tablet Take 500 mg by mouth every 6 hours if needed for Pain (Pain of dental infection). 04/08/20 23 Active cetirizine (ZYRTEC) 10 mg tabletIndications:S easonal allergic rhinitis due to pollen Take 1 Tablet (10 mg) by mouth once daily. 90 Tablet 3 04/21/20 23 Active fluticasone (50 mcg per actuation) nasal solution (FLONASE)Indication s:Seasonal allergic rhinitis due to pollen Inhale 2 Sprays to both nostrils once daily. 48 g 3 04/21/20 23 Active ketotifen (ZADITOR) 0.025 % (0.035 %) ophthalmic solutionIndications :Seasonal allergic rhinitis due to pollen Place 1 Drop into both eyes two times daily. 5 mL 3 04/21/20 23 Active Inflectra 100 mg injection 100 mg. 03/03/20 24 Active predniSONE (DELTASONE) 20 mg tabletIndications:C rohn's disease of colon without complication (HC) Take 4 Tablets (40 mg) by mouth once daily for 3 days, THEN 3.5 Tablets (35 mg) once daily for 3 days, THEN 3 Tablets (30 mg) once daily for 3 days, THEN 2.5 Tablets (25 mg) once daily for 3 days, THEN 2 Tablets (20 mg) once daily for 3 days, THEN 1.5 Tablets (15 mg) once daily for 3 days, THEN 1 Tablet (10 mg) once daily for 3 days, THEN 0.5 Tablets (5 mg) once daily for 3 days., eRx, Disp-54 Tablet, 54 Tablet 03/08/20 24 Active oxyCODONE (ROXICODONE) 5 mg immediate release tabletIndications:C rohn's disease of colon without complication (HC) Take 1 Tablet (5 mg) by mouth every 6 hours if needed for Pain (severe pain only). 8 Tablet 03/08/20 24 Active acetaminophen (TYLENOL EXTRA STRGTH) 500 mg tabletIndications:C rohn's disease of colon without complication (HC) Take 2 Tablets (1,000 mg) by mouth every 6 hours if needed for Pain. Max acetaminophen dose: 4000mg in 24 hrs. 30 Tablet 03/08/20 24 Active ondansetron 4 mg disintegrating tabletIndications:A bdominal pain, unspecified abdominal location Place 1 Tablet (4 mg) on the tongue every 8 hours if needed for Nausea/Vomiting. 10 Tablet 10/04/19 25 Active oxyCODONE-acetamino phen (Percocet) 5-325 mg per tabletIndications:A bdominal pain, unspecified abdominal location Take 1-2 Tablets by mouth every 6 hours if needed for Pain. Max acetaminophen dose: 4000mg in 24 hrs. 6 Tablet 10/04/19 25 Active ondansetron 4 mg disintegrating tabletIndications:R ight lateral abdominal pain,Crohn's disease with complication, unspecified gastrointestinal tract location (HC) Place 1 Tablet (4 mg) on the tongue every 8 hours if needed for Nausea/Vomiting. 12 Tablet 10/09/19 25 Active oxyCODONE 5 mg immediate release tabletIndications:R ight lateral abdominal pain,Crohn's disease with complication, unspecified gastrointestinal tract location (HC) Take 1 Tablet (5 mg) by mouth every 4 hours if needed for Pain. 6 Tablet 10/09/19 25 Active Active Problems Problem Noted Date Diagnosed Date Bicuspid aortic valve 04/12/2023 Dental infection 04/12/2023 Acute anemia 12/31/2022 Leukocytosis 12/31/2022 Crohn's disease of ileum with intestinal obstruc tion 10/21/2022 Small bowel obstruction 10/21/2022 Current moderate episode of major depressive disorder without prior episode 07/06/2021 Post-concussion headache 07/15/2019 Duodenitis Ileitis Resolved Problems Problem Noted Date Diagnosed Date Resolved Date Abdominal pain, generalized 01/25/2020 07/06/2021 Nausea and vomiting 01/25/2020 07/06/19 Encounters Date Type Department Care Team Description 10/07/2024 10:32 PM CDT - 10/08/2024 2:05 AM CDT Emergency [facility] [address] [place] [address] Sybil Ortega PA Ellingson, Marc Tollef, MD Right lateral abdominal pain (Primary Dx); Crohn's disease with complication, unspecified gastrointestinal tract location (HC) Discharge Disposition: Home Self Care 10/07/2024 Travel from Last 3 Months Immunizations Immunization Administration Dates Next Due Tdap 03/31/2018 Family History Medical History Relation Name Comments No Known Problems Other Relation Name Status Comments Other Social History Tobacco Use Types Packs/Day Years Used Date Smoking Tobacco: Never Passive Smoke Exposure: Never Smokeless Tobacco: Never Tobacco Cessation:Counseling Given: No Alcohol Use Standard Drinks/Week Comments Never 0 (1 standard drink = 0.6 oz pur e alcohol) PHQ-2 Answer Date Recorded PHQ-2 TOTAL SCORE 0 11/03/2022 Social Connections Answer Date Recorded Frequency of Communication with Friends and Fami ly 0 10/23/2022 Financial Resource Strain Answer Date R ecorded Difficulty of Paying Living Expenses 3 10/27/2022 Difficulty of Paying Living Expenses Not on file 10/27/2022 Food Insecurity Answer Date Recorded Do you worry your food will run out before you are able to buy more? 1 04/12/2023 Transportation Needs Answer Date Record ed Lack of Transportation (Medical) 1 10/23/2022 Housing Stability Answer Date Recorded What is your housing situation today? 1 04/12/2023 Interpersonal Safety Answer Date Record ed Are you being hit, kicked, p ushed or yelled at (see row info)? 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 Not on file Not on file Not on file Obstetrics History Last Filed Vital Signs Vital Sign Reading Time Taken Comments Blood Pressure 122/73 10/08/2024 1:00 AM CDT Pulse 51 10/08/2024 1:00 AM CDT Temperature 36.7 C (98.1 F) 10/07/2024 10:44 PM CDT Respiratory Rate 16 10/07/2024 10:44 PM CDT Oxygen Saturation 100% 10/08/2024 1:00 AM CDT Inhaled Oxygen Concentration - - Weight 74.4 kg (164 lb) 10/07/2024 10:44 PM CDT Height 180.3 cm (5' 10.98) 10/07/2024 10:44 PM CDT Body Mass Index 22.88 10/07/2024 10:44 PM CDT Plan of Treatment Health Maintenance Due Date Last Done Comments COVID-19 vaccine series (#1) 01/22/2001 HIV for age 15-65 01/22/2011 Hepatitis C screening for ag e 18-79 01/22/2014 Hepatitis B series for 19+ ( 1 of 3 - 19+ 3-dose series) 01/22/2015 Pneumococcal series for age 6-49 (1 of 2 - PCV) 01/22/2015 BMI (ht and wt on same day) for age 18+ 11/04/2023 11/03/2022, 12/10/2020, 02/23/2020, Additional history exists Depression screening for age 12+ 11/04/2023 11/03/2022, 10/25/2022, 07/02/2021, Additional history exists Influenza Vaccine (#1) 2025 Tetanus booster 03/31/2028 03/31/2018 Procedures Procedure Name Priority Date/Time Associated Diagnosis Comments SEDIMENTATION RATE HENRY 10/07/2024 10 :45 PM CDT C-REACTIVE PROTEIN HENRY 10/07/2024 10 :45 PM CDT CBC WITH AUTO DIFFERENTIAL STAT 10/07/2024 10:45 PM CDT LIPASE STAT 10/07/2024 10:45 PM CDT HEPATIC FUNCTION PANEL STAT 10:45 PM CDT BASIC METABOLIC PANEL STAT 10/07/2024 10:45 PM CDT CBC WITH AUTO DIFFERENTIAL STAT 10/07/2024 10:45 PM CDT from Last 3 Months Results * SEDIMENTATION RATE (10/07/2024 10:45 PM CDT) [facility] SEDIMENTATION RATE <1 <15 mm/hr 2024 11:05 PM CDT [facility] Blood BLOOD SPECIMEN / Unknown Venipuncture / Unknown 10/07/2024 10:45 PM CDT 10/07/2024 10:48 PM CDT Sybil COCHRAN HEMATOLOGY Final Result [facility] [address] [place], [place] [id number] * (ABNORMAL) CBC WITH AUTO DIFFERENTIAL (10/07/2024 10:45 PM CDT) [facility] WHITE BLOOD COUNT 8.5 4.5 - 11.0 thou/cu mm 10/07/2024 11:20 PM CDT [facility] RED BLOOD COUNT 5.53 4.30 - 5.90 mil/cu mm 10/07/2024 11:20 PM CDT [facility] HEMOGLOBIN 16.0 13.5 - 17.5 g/dL 10/07/2024 11:20 PM CDT [facility] HEMATOCRIT 45.5 37.0 - 53.0 % 10/07/2024 11:20 PM CDT [facility] MCV 82 80 - 100 fL 10/07/2024 11:20 PM [facility] MCH 28.9 26.0 - 34.0 pg 10/07/2024 11:20 PM [facility] MCHC 35.2 32.0 - 36.0 g/dL 10/07/2024 11:20 PM [facility] RDW 12.4 11.5 - 15.5 % 10/07/2024 11:20 PM [facility] PLATELET COUNT 286 140 - 440 thou/cu mm 10/07/2024 11:20 PM [facility] MPV 9.8 6.5 - 11.0 fL 10/07/2024 11:20 PM [facility] % NEUT 56.9 % 10/07/2024 11:20 PM [facility] % LYMPH 30.8 % 10/07/2024 11:20 PM [facility] % MONO 6.2 % 10/07/2024 11:20 PM [facility] % EOS 5.6 % 10/07/2024 11:20 PM [facility] % BASO 0.5 % 10/07/2024 11:20 PM [facility] ABSOLUTE NEUTROPHILS 4.8 1.7 - 7.0 thou/cu mm 10/07/2024 11:20 PM [facility] ABSOLUTE LYMPHOCYTES 2.6 0.9 - 2.9 thou/cu mm 10/07/2024 11:20 PM [facility] ABSOLUTE MONOCYTES 0.5 <0.9 thou/cu mm 10/07/2024 11:20 PM [facility] ABSOLUTE EOSINOPHILS 0.5(H) <0.5 thou/cu mm 10/07/2024 11:20 PM [facility] ABSOLUTE BASOPHILS 0.0 <0.3 thou/cu mm 10/07/2024 11:20 PM [facility] Blood BLOOD SPECIMEN / Unknown Venipuncture / Unknown 10/07/2024 10:45 PM CDT 10/07/2024 10:48 PM CDT Sybil COCHRAN HEMATOLOGY Final Result Performing Organization Address [facility]/ZIP Co de Phone Number [facility] [address] [place] [address] * C-REACTIVE PROTEIN (10/07/2024 10:45 PM CDT) C-REACTIVE PROTEIN <0.3 <0.5 mg/dL 10/07/2024 11:10 PM CDT [facility] Blood BLOOD SPECIMEN / Unknown Venipuncture / Unknown 10/07/2024 10:45 PM CDT 10/07/2024 10:48 PM CDT Sybil COCHRAN CHEMISTRY Final Result Performing Organization Address [facility] Co de Phone Number [facility] [address] [place] [address] * LIPASE (10/07/2024 10:45 PM CDT) LIPASE 15.7 13.0 - 60.0 IU/L 10/07/2024 11:09 PM CDT [facility] Blood BLOOD SPECIMEN / Unknown Venipuncture / Unknown 10/07/2024 10:45 PM CDT 10/07/2024 10:48 PM CDT Sybil COCHRAN CHEMISTRY Final Result Performing Organization Address [facility]/ZIP Co de Phone Number [facility] [address] [place], [place] [phone] * (ABNORMAL) HEPATIC FUNCTION PANEL (10/07/2024 10:45 PM CDT) ALBUMIN 5.1(H) 4.0 - 4.9 g/dL 10/07/2024 11:09 PM CDT [facility] PROTEIN,TOTAL 7.5 6.0 - 8.0 g/dL 10/07/2024 11:09 PM CDT [facility] BILIRUBIN,TOTAL 0.4 0.0 - 1.2 mg/dL 10/07/2024 11:09 PM [facility] BILIRUBIN,DIRECT 0.2 0.0 - 0.2 mg/dL 10/07/2024 11:09 PM [facility] BILIRUBIN,INDIRE CT 0.2 0.2 - 0.8 mg/dL 10/07/2024 11:09 PM [facility] ALK PHOSPHATASE 78 40 - 129 IU/L 10/07/2024 11:09 PM [facility] ALT (SGPT) 14 10 - 50 IU/L 10/07/2024 11:09 PM [facility] AST (SGOT) 24 10 - 50 IU/L 10/07/2024 11:09 PM [facility] Blood BLOOD SPECIMEN / Unknown Venipuncture / Unknown 10/07/2024 10:45 PM CDT 10/07/2024 10:48 PM CDT Sybil COCHRAN CHEMISTRY Final Result [facility] [address] [place] [address] * (ABNORMAL) BASIC METABOLIC PANEL (10/07/2024 10:45 PM CDT) SODIUM 140 136 - 145 mmol/L 10/07/2024 11:09 PM [facility] POTASSIUM 3.9 3.5 - 5.1 mmol/L 10/07/2024 11:09 PM [facility] CHLORIDE 103 98 - 107 mmol/L 10/07/2024 11:09 PM [facility] CO2,TOTAL 26 22 - 29 mmol/L 10/07/2024 11:09 PM [facility] ANION GAP 11 5 - 18 10/07/2024 11:09 PM [facility] GLUCOSE 138(H) 70 - 99 mg/dL 10/07/2024 11:09 PM [facility] CALCIUM 10.0 8.8 - 10.4 mg/dL 10/07/2024 11:09 PM T [facility] Comment: Reference ranges for this test were updated on 04/26/2024 to reflect our healthy population more accurately. Reference range changes are not retroactively applied to results, but previous results using the same methodology can be interpreted in the context of the new reference range. BUN 15 6 - 20 mg/dL 10/07/2024 11:09 PM T [facility] CREATININE 1.11 0.70 - 1.20 mg/dL 10/07/2024 11:09 PM T [facility] BUN/CREAT RATIO 14 10 - 20 11:09 PM [facility] eGFR >90 >90 mL/min/1. 73m2 10/07/2024 11:09 PM [facility] Comment:As of 2021, eG FR is calculated by the CKD-EPI creatinine equation without race adjustment. eGFR can be influenced by muscle mass, exercise, and diet. The reported eGFR is an estimation only and is only applicable if the renal function is stable. Blood BLOOD SPECIMEN / Unknown Venipuncture / Unknown 10/07/2024 10:45 PM CDT 10/07/2024 10:48 PM CDT Sybil COCHRAN CHEMISTRY Final Result [facility] [address] [place] [address] from Last 3 Months Insurance [id number] [place] [id number] BLUE CROSS OF NON-RI-ITS [facility] Advance Directives * Full Code (Latest Code Status on File) Date Activated Date Inactivated Comments 04/12/2023 6:27 PM 04/13/2023 9:11 PM Question Answer Comments Code Status Discussion: Reviewed Preferences * Full Code Date Activated Date Inactivated Comments 04/12/2023 12:14 PM 04/12/2023 6:26 PM Question Answer Comments Code Status Discussion: Unable to Assess Preferences, Provider to review later * Full Code Date Activated Date Inactivated Comments 12/30/2022 10:25 PM 01/02/2023 4:42 PM Question Answer Comments Code Status Discussion: Reviewed Preferences * Full Code Date Activated Date Inactivated Comments 12/30/2022 10:23 AM 12/30/2022 9:17 PM Question Answer Comments Code Status Discussion: Reviewed Preferences * Full Code Date Activated Date Inactivated Comments 10/25/2022 11:49 PM 10/28/2022 5:38 PM Question Answer Comments Code Status Discussion: Reviewed Preferences Care Teams Stonemason Relationship Specialty Start Date End Date Jailyn Reese PA [address] [place] [address] PCP - General Physician Suppository Molding Machine Operator 08/12/20 Thai Gurrola MD [address] [place] [address] Gastroenterology 10/23/22
--- OUTSIDE RECORDS SUMMARY | 2025-01-06 07:20 | XMS_ITS | Referral Summary ---
Author Organization [facility] Address [address] [place] [address] Care Team Providers Care Pr Internship Name Role Phone None, Md Unavailable Unavailable None, Primary Care Provider Unavailabl e Allergies No known active allergies Medications No known medications Active Problems No known active problems Social History Tobacco Use Types Packs/Day Years Used Date Smoking Tobacco: Never Sex and Gender Information Value Date Recorded Sex Assigned at Not on file Legal Sex Male 1:43 PM CDT Gender Identity Not on file Sexual Orientation Not on file Last Filed Vital Signs Vital Sign Reading Time Taken Comments Blood Pressure 118/76 02/28/2017 10:01 AM CDT Pulse 56 02/28/2017 10:01 AM CDT Temperature 36.8 C (98.2 F) 02/28/2017 10:01 AM CDT Respiratory Rate 14 02/28/2017 10:01 AM CDT Oxygen Saturation 97% 02/28/2017 10:01 AM CDT Inhaled Oxygen Concentration - - Weight 71.7 kg (158 lb) 02/28/2017 10:01 AM CDT Height 180.3 cm (5' 11) 02/28/2017 10:01 AM CDT Body Mass Index 22.04 02/28/2017 10:01 AM CDT Plan of Treatment Not on file Care Teams Pr Internship Relationship Specialty Start Date End Date Lora, PCP - Primary Care Clinic 07/06/17 Lora, PCP - General 07/06/17
--- OUTSIDE RECORDS SUMMARY | 2025-01-06 07:20 | XMS_ITS | Clinical Summary ---
Author Organization [facility] Address [address] [address] Phone Care Team Providers Care Wharf Builder Name Role Phone Jailyn Reese PA-C Primary Care Provider Allergies No known active allergies Medications nortriptyline (Pamelor) 10 MG capsule Take 40 mg by mouth every evening. Active escitalopram (Lexapro) 20 MG tablet Take 20 mg by mouth one time a day. Active Active Problems Problem Noted Date Diagnosed Date Current moderate episode of major depressive disorder without prior episode 07/06/2021 Post-concussion headache 07/15/2019 Medical History Medical History Date Comments Concussion Depression Social History Tobacco Use Types Packs/Day Years Used Date Smoking Tobacco: Never Assessed Sex and Gender Information Value Date Recorded Sex Assigned at Not on file Legal Sex Male 10:32 PM CDT Gender Identity Not on file Sexual Orientation Not on file Obstetrics History Last Filed Vital Signs Vital Sign Reading Time Taken Comments Blood Pressure 128/75 09/13/2021 1:42 AM CDT Pulse 88 09/13/2021 1:42 AM CDT Temperature 37 C (98.6 F) 09/12/2021 10:33 PM CDT Respiratory Rate 16 09/12/2021 10:33 PM CDT Oxygen Saturation 100% 09/13/2021 1:42 AM CDT Inhaled Oxygen Concentration - - Weight - - Height - - Body Mass Index - - Plan of Treatment Health Maintenance Due Date Last Done Comments Hepatitis B Vaccine (Standin g Order) (1 of 3 - 19+ 3-dose series) 01/22/2015 PERTUSSIS (Standing Order) 01/22/2015 TETANUS (Standing Order) 01/22/2015 HPV Vaccine (Standing Order) Aged Out No longer eligible based on patient's age to complete this topic Pneumococcal/PCV20 Vaccine: Pediatrics (2-5 yrs) and At-Risk Patients (6-49 yrs) (Standing Order) Aged Out No longer eligible b ased on patient's age to complete this topic Insurance [facility] OUT OF [facility] Commercial Address: [facility] [id number] [place] [address] Care Teams Wharf Builder Relationship Specialty Start Date End Date Jailyn Reese PA-C [address] [place] [address] PCP - General 09/12/21
--- OUTSIDE RECORDS SUMMARY | 2025-01-06 07:20 | XMS_ITS | Clinical Summary ---
Author Organization [facility] Address [address] [place] [address] Care Team Providers Care Uranium Processing Supervisor Name Role Phone None, Md Unavailable Unavailable None, Md Primary Care Provider Unavailabl e Allergies No [...] 02/28/2017 10:01 AM CDT Plan of Treatment Health Maintenance Due Date Last Done Comments Hepatitis C Screening 1996 Anxiety Screening (SAEID-2) 01/22/1997 Depression Assessment (PHQ-2) 01/22/1997 Adult Tetanus Booster 01/22/2015 COVID-19 Vaccine (2023-2 5 season) 2024 Influenza Vaccine (#1) 2025 RSV Vaccines (1 - 1-dose 75+ series) 01/22/2071 Meningococcal B Vaccine Aged Out No l onger eligible based on patient's age to complete this topic Pneumococcal Vaccine Aged Out No long er eligible based on patient's age to complete this topic Care Teams Uranium Processing Supervisor Relationship Specialty Start Date End Date None, PCP - Primary Care Clinic 07/06/17 None, PCP - General 07/06/17
[2025-01-06 07:39] VITALS: BP 159/83; PULSE 72; RESP 20; TEMP 37; O2SAT 98; BMI 23.4
--- NOTE | 2025-01-06 07:54 | ED.ABDPAIN ---
HPI - Abdominal Pain General Chief Complaint: Abdominal Pain Stated Complaint: Nausea, abdominal pain Time Seen by Provider: 01/06/25 07:47 History of Present Illness HPI narrative: Patient is a 29-year-old gentleman with history of Crohn's disease who presents with the sudden onset of pain in the right side of his abdomen starting this morning. 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 He has had no abdominal surgeries in the past. He has had some mild nausea no vomiting. Pain is moderate and localized to the right lower quadrant. Patient is otherwise healthy takes no other medications. He has not had a recent flare of his Crohn's. Related Data Home Medications ?Medication ?Instructions ?Recorded ?Confirmed triamcinolone acetonide 0.1 % applic topical BID 01/06/25 topical cream vedolizumab 300 mg intravenous mg IV 01/06/25 solution (Entyvio) Allergies Allergy/AdvReac Type Severity Reaction Status Date / Time No Known Drug Allergies Allergy Verified 01/06/25 07:37 Review of Systems Status of ROS Reports: 10 or more systems reviewed and unremarkable except as noted in History and below Exam Narrative: Exam Narrative: EXAM GENERAL: Patient appears comfortable and well. EYES: No scleral icterus. ENT: Tympanic membranes and oropharynx normal. THYROID: no thyroid nodules or thyromegaly. LYMPH: No supraclavicular or cervical lymphadenopathy. SKIN: Visible skin seen during exam normal or with benign process only. EXT: No dependent lower extremity pedal edema. HEART: Regular rate and rhythm with no murmurs, rubs, or gallops. LUNGS: Clear to auscultation bilaterally with no crackles or wheezes. ABD: Hypoactive bowel sounds tenderness palpation localize the right lower quadrant. PSYCH: Good eye contact, speech is not pressured. Const: Vital Signs, click to edit/add: Vital Signs - 24 hr 01/06/25 07:39 Temperature 98.6 F Pulse Rate [Pulse Oximeter] 72 Respiratory Rate 20 Blood Pressure [Ri ght Upper Arm] 159/83 H Pulse Oximetry 98 Oxygen Delivery Me thod Room Air Course Course ED Course: Patient seen examined. Will proceed with CT abdomen pelvis CBC comprehensive metabolic panel lipase lactate. Will begin with hydration and pain control as well. Vital Signs Vital signs: Initial Vital Signs Temperature 98.6 F 01/06/25 07:39 Temperature Source Temporal Artery Scan 01/06/25 07:39 Pulse Rate 72 01/06/25 07:39 Respiratory Rate 20 01/06/25 07:39 Blood Pressure 159/83 H 01/06/25 07:39 Blood Pressure Mean 108 H 01/06/25 07:39 Pulse Oximetry 98 01/06/25 07:39 Oxygen Delivery Method Room Air 01/06/25 07:39 Vital Signs Temperature 98.6 F 01/06/25 07:39 Pulse Rate 72 01/06/25 07:39 Respiratory Rate 20 01/06/25 07:39 Blood Pressure 159/83 H 01/06/25 07:39 Pulse Oximetry 98 01/06/25 07:39 Oxygen Delivery Method Room Air 01/06/25 07:39 Temperature 98.6 F 01/06/25 07:39 Pulse Rate 72 01/06/25 07:39 Respiratory Rate 20 01/06/25 07:39 Blood Pressure 159/83 H 01/06/25 07:39 Pulse Oximetry 98 01/06/25 07:39 Oxygen Delivery Method Room Air 01/06/25 07:39 Medications Administered Medications: Discontinued Medications Generic Name Dose Route Start Last Admin Trade Name Freq PRN Reason Stop Dose Admin Hydromorphone HCl 0.5 mg 01/06/25 07:53 01/06/25 08:12 Hydromorphone 0.5 Mg/0.5 Ml Inj IVP 01/06/25 07:54 0.5 mg ONCE ONE Administration Sodium Chloride 1,000 mls @ 1,000 mls/hr 01/06/25 07:54 01/06/25 08:16 0.9 % Sodium Chloride 1000 Ml IV 01/06/25 08:53 1,000 mls/hr .Q1H GAIL Administration Ondansetron HCl 4 mg 01/06/25 07:53 01/06/25 08:13 Ondansetron 2 Mg/Ml Inj IVP 01/06/25 07:54 4 mg ONCE ONE Administration MDM - Abdominal Pain MDM Narrative Medical decision making narrative: Patient is a 29-year-old gentleman with Crohn's disease who presents with right lower quadrant pain. Laboratory studies are reassuring. CT abdomen pelvis shows chronic narrowing of the terminal ileum. I did review these findings with the patient and he tells me this is not a new finding. I did treated with normal saline Dilaudid and Zofran. He is feeling better. He states that he does well with short course of prednisone in the circumstances as well as continuation of his disease modifying agent. I did treated with prednisone 20 mg b.i.d. for 5 days asked him to follow-up with his GI and we did discharge him home at this time. Lab Data Labs: Lab Results 01/06/25 Range/Units 08:05 WBC 6.41 (4.50-11.00) K/uL RBC 5.13 (4.30-5.90) m/uL Hgb 14.7 (13.5-17.5) gm/dL Hct 41.2 (37.0-53.0) % MCV 80 (80-100) fL MCH 29 (26-34) pg MCHC 36 (32-36) gm/dL RDW Coeff of Adalberto 11.6 (11.5-15.5) % Plt Count 234 (140-440) K/uL Neut % (Auto) 62.1 (42.0-72.0) % Lymph % (Auto) 26.5 (20-44) % [place] % (Auto) 6.6 (0.0-11.0) % Eos % (Auto) 4.2 (0.0-7.0) % Baso % (Auto) 0.6 (0.0-3.0) % Neut # (Auto) 3.98 (1.7-7.0) K/uL Lymph # (Auto) 1.70 (0.90-2.90) K/uL [place] # (Auto) 0.40 (0.00-0.90) K/UL Eos # (Auto) 0.27 (0.00-0.50) K/uL Baso # (Auto) 0.04 (0.00-0.30) K/uL Abs Immat Gran (auto) 0.00 (0.00-0.30) K/uL Imm/Tot Granulo (auto) 0.0 % Sodium 138 (135-149) mmol/L Potassium 3.5 L (3.6-5.1) mmol/L Chloride 104 (96-114) mmol/L Carbon Dioxide 25 (20-32) mmol/L Anion Gap 9 (7-15) mEq/L BUN 12 (5-24) mg/dL Creatinine 1.0 (0.5-1.5) mg/dL Estimated Creat Clear 117.13 Estimated GFR 105 ml/min Glucose 86 (60-115) mg/dL Lactate 0.6 (0.5-1.9) mmol/L Calcium 9.4 (8.4-10.6) mg/dL Total Bilirubin 1.3 (0.1-1.5) mg/dL AST 37 H (12-35) U/L ALT 21 (4-50) U/L Alkaline Phosphatase 55 (40-150) U/L Total Protein 7.5 (6.0-8.3) g/dL Albumin 4.7 (3.3-5.0) g/dL Lipase 27 (23-300) U/L Discharge Plan Discharge Clinical Impression: Crohn's disease Patient Disposition: Home, Self-Care Condition: Stable Instructions: Crohn Disease (ED) Additional Instructions: Prednisone as directed Follow-up with your doctor as needed Continue current medications Advanced diet activity as tolerated. Activity Level: No Restrictions Discharge Diet: Regular Prescriptions: No Action triamcinolone acetonide 0.1 % cream topical BID Entyvio 300 mg recon soln IV Follow Up/Referrals: Jailyn Reese PA-C [Primary Care Provider, Family Practice] Stand Alone Forms: [employer] Info Instructions
--- NOTE | 2025-01-06 07:58 | CRLHL7_ITS ---
For Patients: As a result of the Century Cures Act, medical imaging exams and procedure reports are released immediately into your electronic medical record. You may view this report before your referring provider. If you have questions, please contact your health care provider. INDICATION: Right lower quadrant pain and nausea. TECHNIQUE: CT abdomen and pelvis acquired with 100 cc Omnipaque 350 IV contrast. COMPARISON: 10/03/2024 FINDINGS: Lung bases are clear. The liver is unremarkable. The gallbladder is unremarkable. No biliary ductal dilatation. Spleen is unremarkable. Pancreas is unremarkable. Adrenal glands are normal. Kidneys are unremarkable. Urinary bladder is unremarkable. Stool throughout a nondilated colon. Diminutive appendix. No findings of acute appendicitis. Subtle focal narrowing of the terminal ileum is chronic and may represent a stricture (107). No inflammatory fat stranding is seen. The immediate upstream small bowel is prominent. The remainder of the small bowel is unremarkable without evidence of small-bowel obstruction or enteritis. The stomach is partially distended. No free air. No ascites. No lymphadenopathy. The prostate is unremarkable. Aorta is not aneurysmal. Bone windows demonstrate no acute finding. IMPRESSION: 1. 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 No significant inflammatory fat stranding to suggest acute enteritis. The consider follow-up CT/MR enterography for further evaluation. Please note that all CT scans at this facility use dose modulation, iterative reconstruction, and/or weight-based dosing when appropriate to reduce radiation dose to as low as reasonably achievable. Dictated by Angel Vaughan MD @ 01/06/2025 8:42:15 AM (Electronically Signed)
[2025-01-06 08:11] LABS: Lactate* 0.6 mmol/L (0.5-1.9)
[2025-01-06] MEDS: ONDANSETRON 2 MG/ML inj 4 MG IVP (08:13)
[2025-01-06 08:15] LABS: Hematocrit 41.2 % (37.0-53.0); Hemoglobin* 14.7 gm/dL (13.5-17.5); Immature Granulocytes Abs Auto 0.00 K/uL (0.00-0.30); Immature Granulocytes Pct Auto 0.0 %; Lymphocytes Absolute Auto 1.70 K/uL (0.90-2.90); Mean Corpuscular HGB Conc 36 gm/dL (32-36); Mean Corpuscular Hemoglobin 29 pg (26-34); Mean Corpuscular Volume 80 fL (80-100); RDW Coefficient of Variation % 11.6 % (11.5-15.5); Red Blood Count 5.13 m/uL (4.30-5.90); White Blood Count* 6.41 K/uL (4.50-11.00)
[2025-01-06 08:21] LABS: Slide Review Reflex No
[2025-01-06 08:22] VITALS: BP 115/74
[2025-01-06 08:27] LABS: Albumin* 4.7 g/dL (3.3-5.0); Chloride* 104 mmol/L (96-114); Potassium* 3.5 mmol/L (3.6-5.1); Sodium* 138 mmol/L (135-149)
[2025-01-06 08:30] LABS: Alanine Aminotransferase* 21 U/L (4-50); Alkaline Phosphatase* 55 U/L (40-150); Anion Gap 9 mEq/L (7-15); Aspartate Amino Transferase* 37 U/L (12-35); Bilirubin Total* 1.3 mg/dL (0.1-1.5); Blood Urea Nitrogen* 12 mg/dL (5-24); Carbon Dioxide* 25 mmol/L (20-32); Creatinine* 1.0 mg/dL (0.5-1.5); Est. Creatinine Clearance* 117.13; Estimated Glomerular Filt Rate 105 ml/min; Total Protein* 7.5 g/dL (6.0-8.3)
[2025-01-06 08:31] LABS: Calcium* 9.4 mg/dL (8.4-10.6); Glucose* 86 mg/dL (60-115)
[2025-01-06 08:33] VITALS: PULSE 63; O2SAT 98
[2025-01-06 08:47] VITALS: PULSE 65; O2SAT 100
[2025-01-06 08:48] VITALS: BP 119/73; PULSE 54; O2SAT 100
[2025-01-06 09:02] VITALS: BP 124/91; O2SAT 99
[2025-01-06 09:37] LABS: Appearance Urine Clear (Clear)
== END 2025-01-06 09:07 | disposition home or self-care (01) ==
PROVIDERS: Emergency Provider Internal Medicine; PCP Physician Assistant
DX: K50.90 Crohn's disease, unspecified, without complications (principal); R10.9 Unspecified abdominal pain
CPT/HCPCS: 36415; 74177; 80053; 81003; 83605; 83690; 85025; 96374; 96375; 99283; 99284; 99285; J1171; J2405; J7030; Q9967